=== PATIENT | female | born 1940 | race Caucasian/White ===

== ENCOUNTER 2019-02-11 12:14 | Emergency (ER) | payer OTHER | END 2019-02-11 13:32 | disposition home or self-care (01) | LOC: E/R 12:14 | DX: J06.9 Acute upper respiratory infection, unspecified (principal); I10 Essential (primary) hypertension; Z79.82 Long term (current) use of aspirin | CPT/HCPCS: 71045; 99283-25 ==

== ENCOUNTER 2019-02-12 15:06 | Emergency (ER) | payer OTHER | END 2019-02-12 16:19 | disposition home or self-care (01) | LOC: FTE 15:06 | DX: H10.9 Unspecified conjunctivitis (principal); I10 Essential (primary) hypertension; Z79.82 Long term (current) use of aspirin | CPT/HCPCS: 99283 ==